=== PATIENT | female | born 1995 | race Hispanic/Latino ===

== ENCOUNTER 2017-12-24 12:48 | Emergency (ER) | payer SELFPAY ==
[2017-12-24 15:08] LABS: Absolute Lymphocytes (CBC) 2.3 K/uL (0.7-4.9); Absolute Monocytes 0.7 K/uL (0.1-1.3); Eosinophils % 3.2 % (0-4.4); Lymphocytes % 31.2 % (15.3-44.8); MCH 30.7 pg (27.0-35.0); MCV 90.5 fL (80-100); MPV 9.3 fL (7.6-11.3); Monocytes % 9.6 % (3.3-12.3); RBC Red Blood Cell Count 4.53 M/uL (3.86-4.86)
[2017-12-24 15:19] LABS: BUN Blood Urea Nitrogen 9 mg/dL (6-20); Bicarbonate 26 mEq/L (21-31); Glucose Level 93 mg/dL (65-120); Potassium 3.5 mEq/L (3.6-5.0); Sodium Level 137 mEq/L (135-145)
[2017-12-24 15:39] LABS: Urine Blood 2+ (NEG); Urine Glucose NEGATIVE (NEG); Urine Protein TRACE (NEG); Urine Specific Gravity 1.025 (1.005-1.030)
--- NOTE | 2017-12-24 16:11 | ER ---
Nurse's Notes [facility] Name: Ashwini Reese Age: 22 yrs Sex: Female : 1995 Arrival Date: 12/24/2017 Time: 12:51 Bed 27 Private MD: Diagnosis: Abnormal uterine and vaginal bleeding, unspecified Presentation: 12/24 13:21 Presenting complaint: Patient states: "last night i started having a lot of vaginal tw2 bleeding, i had my period 2 weeks ago, cramping, and have some clots". Transition of care: patient was not received from another setting of care. Onset of symptoms was December 24, 2017. Care prior to arrival: None. 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 - Social history:: Smoking status: Patient/guardian denies using tobacco. - Family history:: not pertinent. - Hospitalizations: : No recent hospitalization is reported. Screenin:04 Abuse screen: Denies threats or abuse. Denies injuries from another. Nutritional aj1 screening: No deficits noted. Tuberculosis screening: No symptoms or risk factors identified. Assessment: 14:04 General: Appears in no apparent distress. comfortable, Behavior is calm, cooperative, aj1 appropriate for age. Pain: Denies pain. Neuro: Level of Consciousness is awake, alert, obeys commands, Oriented to person, place, time, situation. Cardiovascular: Patient's skin is warm and dry. Respiratory: Airway is patent Respiratory effort is even, unlabored, Respiratory pattern is regular, symmetrical. GI: No signs and/or symptoms were reported involving the gastrointestinal system. : Reports vaginal bleeding that is bright red, that began last night, states that she put a pad on at 2200 last night and when she woke up at 1000 this AM she had saturated the pad, she got up and took a shower and then came to the ER, but has not saturated a pad since this morning. EENT: No signs and/or symptoms were reported regarding the EENT system. Derm: No signs and/or symptoms reported regarding the dermatologic system. Skin is pink, warm \\T\\ dry. normal. Musculoskeletal: No signs and/or symptoms reported regarding the musculoskeletal system. Circulation, motion, and sensation intact. 15:19 Reassessment: Patient appears in no apparent distress at this time. Patient and/or aj1 family updated on plan of care and expected duration. Pain level reassessed. Patient is alert, oriented x 3, equal unlabored respirations, skin warm/dry/pink. 16:20 Reassessment: Patient appears in no apparent distress at this time. Patient and/or kb1 family updated on plan of care and expected duration. Pain level reassessed. Patient is alert, oriented x 3, equal unlabored respirations, skin warm/dry/pink. Vital Signs: 13:22 BP 121 / 68; Pulse 70; Resp 18; Temp 98.8; Pulse Ox 100% on R/A; Weight 83.91 kg (R); tw2 Height 4 ft. 11 in. (149.86 cm); Pain 6/10; 15:19 BP 117 / 76; Pulse 71; Resp 18; Pulse Ox 100% ; aj1 16:20 BP 120 / 87; Pulse 68; Resp 18; Pulse Ox 100% ; kb1 13:22 Body Mass Index 37.37 (83.91 kg, 149.86 cm) tw2 ED Course: 12:51 Patient arrived in ED. mr 13:21 Triage completed. tw2 13:23 Arm band placed on. tw2 14:04 Hollis Granados MD is Attending Physician. rn 14:04 Kat Le RN is Primary Nurse. aj1 14:04 Patient has correct armband on for positive identification. Bed in low position. Call aj1 light in reach. Side rails up X 1. 14:04 No provider procedures requiring assistance completed. aj1 16:20 IV discontinued, intact, bleeding controlled, No redness/swelling at site. Pressure kb1 dressing applied. Administered Medications: No medications were administered Outcome: 16:11 Discharge ordered by . rn 16:25 Discharged to home ambulatory. kb1 16:25 Condition: stable 16:25 Discharge instructions given to patient, Instructed on discharge instructions, follow up and referral plans. Demonstrated understanding of instructions, follow-up care. 16:33 Patient left the ED. kb1 Signatures: Kat Le RN RN aj1 Tere Sutton mr Hollis Granados MD MD rn Gwendolyn Ingram RN RN tw2 Sarah Underwood RN RN kb1
--- NOTE | 2017-12-24 16:11 | EDPHYS ---
Physician Documentation [facility] Name: Ashwini Reese Age: 22 yrs Sex: Female : 1995 Arrival Date: 12/24/2017 Time: 12:51 Bed 27 Private MD: ED Physician Hollis Granados HPI: 12/24 14:38 This 22 yrs old Female presents to ER via Ambulatory with complaints of rn Vaginal Pain. 14:38 This 22 yrs old Female presents to ER via Ambulatory with complaints of rn Vaginal bleeding. 14:38 The patient presents with vaginal bleeding that is moderate, reports using 2 pads porcelain waxer tampons per day. Onset: The symptoms/episode began/occurred last night. Modifying factors: The symptoms are alleviated by nothing, the symptoms are aggravated by nothing. The patient has not experienced similar symptoms in the past. The patient has not recently seen a physician. Reports vaginal bleeding since last night, has used 2 pads, is heavier than her normal bleeding, last normal period was 2 weeks ago and is very regular. . 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 - Social history:: Smoking status: Patient/guardian denies using tobacco. - Family history:: not pertinent. - Hospitalizations: : No recent hospitalization is reported. ROS: 14:38 Constitutional: Negative for fever, chills, and weight loss, Eyes: Negative for injury, rn pain, redness, and discharge, Cardiovascular: Negative for chest pain, palpitations, and edema, Respiratory: Negative for shortness of breath, cough, wheezing, and pleuritic chest pain, Abdomen/GI: Negative for abdominal pain, nausea, vomiting, diarrhea, and constipation, Back: Negative for injury and pain, : + vaginal bleeding MS/Extremity: Negative for injury and deformity, Skin: Negative for injury, rash, and discoloration, Neuro: Negative for headache, weakness, numbness, tingling, and seizure. Exam: 14:38 Constitutional: This is a well developed, well nourished patient who is awake, alert, rn and in no acute distress. Abdomen/GI: Soft, non-tender, with normal bowel sounds. No distension or tympany. No guarding or rebound. No evidence of tenderness throughout. MS/ Extremity: Pulses equal, no cyanosis. Neurovascular intact. Full, normal range of motion. Equal circumference. Vital Signs: 13:22 BP 121 / 68; Pulse 70; Resp 18; Temp 98.8; Pulse Ox 100% on R/A; Weight 83.91 kg (R); tw2 Height 4 ft. 11 in. (149.86 cm); Pain 6/10; 15:19 BP 117 / 76; Pulse 71; Resp 18; Pulse Ox 100% ; aj1 16:20 BP 120 / 87; Pulse 68; Resp 18; Pulse Ox 100% ; kb1 13:22 Body Mass Index 37.37 (83.91 kg, 149.86 cm) tw2 MDM: 14:04 Patient medically screened. rn 16:09 Differential diagnosis: menometrorrhagia, menorrhea, Data reviewed: vital signs, nurses rn notes, lab test result(s), and as a result, I will discharge patient. Counseling: I had a detailed discussion with the patient and/or guardian regarding: the historical points, exam findings, and any diagnostic results supporting the discharge/admit diagnosis, lab results, the need for outpatient follow up, to return to the emergency department if symptoms worsen or persist or if there are any questions or concerns that arise at home. 16:09 Special discussion: I discussed with the patient/guardian in detail that at this point rn there is no indication for admission to the hospital. It is understood, however, that if the symptoms persist or worsen the patient needs to return immediately for re-evaluation. Based on the history and exam findings, there is no indication for further emergent testing or inpatient evaluation. I discussed with the patient/guardian the need to see the OB Gyne specialist for further evaluation of the symptoms. 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 Return precautions given and understood. . 12/24 14:11 Order name: CBC with Diff; Complete Time: 15:41 rn 12/24 14:11 Order name: Basic Metabolic Panel; Complete Time: 15:41 rn 04/10 14:11 Order name: Urine Test (obtain specimen); Complete Time: 14:45 rn 12/24 14:11 Order name: IV Start; Complete Time: 14:45 rn 12/24 15:07 Order name: Urine Dipstick--Ancillary (enter results); Complete Time: 15:41 ag 12/24 15:07 Order name: Urine --Ancillary (enter results); Complete Time: 15:41 ag Administered Medications: No medications were administered Disposition: 12/24/17 16:11 Discharged to Home. Impression: Abnormal uterine and vaginal bleeding, unspecified. - Condition is Stable. - Discharge Instructions: Abnormal Uterine Bleeding. - Medication Reconciliation Form, Thank You Letter, Antibiotic Education, Prescription Opioid Use form. - Follow up: Private Physician; When: As needed; Reason: Recheck today's complaints, Re-evaluation by your physician. - Problem is new. - Symptoms have improved. Signatures: Dispatcher [employer] Hollis Shukla MD MD rn Wise, Tara, RN RN tw2 Sarah Underwood RN RN kb1
== END 2017-12-24 16:33 | disposition home or self-care (01) ==
LOC: ER 12:48
DX: N93.9 Abnormal uterine and vaginal bleeding, unspecified (principal)
CPT/HCPCS: 36415; 80048; 81003; 81025; 85025; 99281

== ENCOUNTER 2018-11-12 19:20 | Emergency (ER) | payer SELFPAY ==
[2018-11-12 20:43] LABS: Absolute Lymphocytes (CBC) 2.2 K/uL (0.7-4.9); Absolute Monocytes 0.6 K/uL (0.1-1.3); Basophils % 0.6 % (0-1.3); Eosinophils % 2.5 % (0-4.4); Hematocrit 40.2 % (36.0-45.0); Lymphocytes % 27.6 % (15.3-44.8); MPV 9.8 fL (7.6-11.3); Monocytes % 7.5 % (3.3-12.3); RBC Red Blood Cell Count 4.41 M/uL (3.86-4.86)
[2018-11-12 20:44] LABS: Protime INR 1.31
--- NOTE | 2018-11-12 20:56 | RAD REPORT ---
EXAM DESCRIPTION: Joseline Single View11/12/2018 8:44 pm CLINICAL HISTORY: Chest pain COMPARISON: none FINDINGS: The lungs appear clear of acute infiltrate. The heart is normal size IMPRESSION: No acute abnormalities displayed
[2018-11-12 20:58] LABS: ALT/SGPT 55 U/L (12-78); AST/SGOT 52 U/L (15-37); Alkaline Phosphatase 52 U/L (45-117); BUN Blood Urea Nitrogen 10 mg/dL (7-18); Bicarbonate 26 mmol/L (21-32); Bilirubin Direct 0.5 mg/dL (0-0.2); Bilirubin Total 1.7 mg/dL (0.2-1.0); Glucose Level 89 mg/dL (74-106); Magnesium 2.3 mg/dL (1.8-2.4); NT PRO-BNP 12 pg/mL (<125); Potassium 3.3 mmol/L (3.5-5.1); Protein, Total 8.2 g/dL (6.4-8.2); Sodium Level 141 mmol/L (136-145); Troponin (Emerg Dept Use Only) < 0.02 ng/mL (0.0-0.045)
--- NOTE | 2018-11-12 23:18 | ER ---
Nurse's Notes [facility] Name: Ashwini Reese Age: 22 yrs Sex: Female : 1995 Arrival Date: 11/12/2018 Time: 19:24 Bed 14 Private MD: Diagnosis: Chest pain, unspecified Presentation: 11/12 19:27 Presenting complaint: Patient states: I started having chest pain around 12PM today tl1 that is radiating to my back. About 2 hours after the chest pain started I began coughing. Transition of care: patient was not received from another setting of care. Onset of symptoms was November 12, 2018. Risk Assessment: Do you want to hurt yourself or someone else? Patient reports no desire to harm self or others. Initial Sepsis Screen: Does the patient meet any 2 criteria? HR > 90 bpm. Does the patient have a suspected source of infection? No. Patient's initial sepsis screen is negative. Care prior to arrival: None. 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 - Social history:: Smoking status: Patient/guardian denies using tobacco, never smoked. - Ebola Screening: : Patient negative for fever greater than or equal to 101.5 degrees Fahrenheit, and additional compatible Ebola Virus Disease symptoms Patient denies exposure to infectious person Patient denies travel to an Ebola-affected area in the 21 days before illness onset. Screenin:32 Abuse screen: Denies threats or abuse. Nutritional screening: No deficits noted. jb4 Tuberculosis screening: No symptoms or risk factors identified. Fall Risk None identified. Assessment: 19:32 General: Appears comfortable, well groomed, well nourished, Behavior is calm, jb4 cooperative, appropriate for age. Pain: Complains of pain in chest Pain radiates to thoracic area Pain currently is 7 out of 10 on a pain scale. Quality of pain is described as pressure, stabbing, Pain began Noon today. Is intermittent. Neuro: Level of Consciousness is awake, alert, obeys commands, Oriented to person, place, time, situation. Cardiovascular: Heart tones S1 S2 present Patient's skin is warm and dry. Rhythm is sinus rhythm. Respiratory: Reports shortness of breath with occurring chest pain Airway is patent Respiratory effort is even, unlabored, Respiratory pattern is regular, symmetrical, Breath sounds are clear bilaterally. GI: No signs and/or symptoms were reported involving the gastrointestinal system. : No signs and/or symptoms were reported regarding the genitourinary system. EENT: No signs and/or symptoms were reported regarding the EENT system. Derm: Skin is intact, Skin is pink, warm \T\ dry. Musculoskeletal: Circulation, motion, and sensation intact. 20:45 Reassessment: Patient and/or family updated on plan of care and expected duration. Pain jb4 level reassessed. Patient is alert, oriented x 3, equal unlabored respirations, skin warm/dry/pink. Cardiovascular: Patient's skin is warm and dry. Rhythm is sinus rhythm. 21:42 Reassessment: Patient and/or family updated on plan of care and expected duration. Pain jb4 level reassessed. Patient is alert, oriented x 3, equal unlabored respirations, skin warm/dry/pink. Cardiovascular: Patient's skin is warm and dry. Rhythm is sinus rhythm. 22:58 Reassessment: Patient and/or family updated on plan of care and expected duration. Pain jb4 level reassessed. Patient is alert, oriented x 3, equal unlabored respirations, skin warm/dry/pink. Patient states feeling better. Cardiovascular: Rhythm is sinus rhythm Chest pain is denied. Respiratory:. Vital Signs: 19:28 BP 126 / 77; Pulse 104; Resp 19; Temp 97.9; Pulse Ox 100% ; Weight 83.91 kg; Height 4 tl1 ft. 11 in. (149.86 cm); Pain 7/10; 20:30 BP 106 / 78; Pulse 89; Resp 20; Pulse Ox 99% on R/A; jb4 21:37 BP 117 / 75; Pulse 78; Resp 16; Pulse Ox 100% on R/A; jb4 22:58 BP 110 / 82; Pulse 84; Resp 19; Pulse Ox 100% on R/A; jb4 19:28 Body Mass Index 37.37 (83.91 kg, 149.86 cm) tl1 ED Course: 19:24 Patient arrived in ED. tl2 19:28 Triage completed. tl1 19:29 Antwon Craft, RN is Primary Nurse. jb4 19:29 Arm band placed on right wrist. EKG completed in triage. Results shown to MD. tl1 19:30 Patient maintains SpO2 saturation greater than 95% on room air. jb4 19:32 Patient has correct armband on for positive identification. Placed in gown. Bed in low jb4 position. Call light in reach. Side rails up X 1. environmental monitoring specialist on. Pulse ox on. NIBP on. 19:39 Initial lab(s) drawn, by nh, sent to lab. Inserted saline lock: 20 gauge in right jb4 antecubital area, using aseptic technique. Blood collected. 19:44 EKG done, by test tech. reviewed by Bernardino Caputo MD. oe 20:00 Bernardino Caputo MD is Attending Physician. tw4 20:44 XRAY Chest (1 view) In Process Unspecified. EDMS 20:49 Notified ED physician of a critical lab result(s). d dimer 871. fc 20:53 Radiology exam delayed due to lab results not completed at this time. (BUN/Creatinine). vm2 21:[address] via wheelchair. vm2 21:17 CT completed. Patient tolerated procedure well. Patient moved back from CT. vm2 21:37 CT Chest For PE Angio In Process Unspecified. EDMS 23:34 No provider procedures requiring assistance completed. IV discontinued, intact, jb4 bleeding controlled. Administered Medications: 20:27 Not Given (MD cancelled): Albuterol 2.5 mg Inhalation once fc Outcome: 23:17 Discharge ordered by MD. tw4 23:34 Discharged to home ambulatory. jb4 23:34 Condition: stable 23:34 Discharge instructions given to patient, Instructed on discharge instructions, follow up and referral plans. medication usage, Demonstrated understanding of instructions, follow-up care, medications, Prescriptions given X 1. 23:35 Patient left the ED. jb4 Signatures: Dispatcher [employer] EDID Sindy Acevedo RN RN Radha Diane RN RN tl1 Cookie Jimenez RN RN tl2 Antwon Craft, RN RN jb4 CarrChava gr Victoria 2 Bernardino Caputo MD [place] tw4
--- NOTE | 2018-11-12 23:18 | EDPHYS ---
Physician Documentation [facility] Name: Ashwini Reese Age: 22 yrs Sex: Female : 1995 Arrival Date: 11/12/2018 Time: 19:24 Bed 14 Private MD: ED Physician Bernardino Caputo HPI: 11/13 06:06 This 22 yrs old Female presents to ER via Ambulatory with complaints of Chest tw4 Pain. 06:06 The patient or guardian reports chest pain that is located primarily in the anterior tw4 chest wall. The pain does not radiate. Associated signs and symptoms: Pertinent positives: cough. The chest pain is described as dull. Duration: The patient or guardian reports a single episode. Modifying factors: The symptoms are alleviated by nothing. the symptoms are aggravated by nothing. Severity of pain: At its worst the pain was moderate in the emergency department the pain is unchanged. The patient has not experienced similar symptoms in the past. 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 - Social history:: Smoking status: Patient/guardian denies using tobacco, never smoked. - Ebola Screening: : Patient negative for fever greater than or equal to 101.5 degrees Fahrenheit, and additional compatible Ebola Virus Disease symptoms Patient denies exposure to infectious person Patient denies travel to an Ebola-affected area in the 21 days before illness onset. ROS: 11/13 06:06 Constitutional: Negative for fever, chills, and weight loss, Eyes: Negative for injury, tw4 pain, redness, and discharge, Respiratory: Negative for shortness of breath, cough, wheezing, and pleuritic chest pain, Abdomen/GI: Negative for abdominal pain, nausea, vomiting, diarrhea, and constipation, Back: Negative for injury and pain. MS/Extremity: Negative for injury and deformity, Skin: Negative for injury, rash, and discoloration, Neuro: Negative for headache, weakness, numbness, tingling, and seizure. Cardiovascular: Positive for chest pain, Negative for edema, orthopnea, palpitations, paroxysmal nocturnal dyspnea. Exam: 02:57 Constitutional: This is a well developed, well nourished patient who is awake, alert, tw4 and in no acute distress. Head/Face: Normocephalic, atraumatic. Chest/axilla: Normal chest wall appearance and motion. Nontender with no deformity. No lesions are appreciated. Cardiovascular: Regular rate and rhythm with a normal S1 and S2. No gallops, murmurs, or rubs. Normal PMI, no JVD. No pulse deficits. Respiratory: Lungs have equal breath sounds bilaterally, clear to auscultation and percussion. No rales, rhonchi or wheezes noted. No increased work of breathing, no retractions or nasal flaring. Abdomen/GI: Soft, non-tender, with normal bowel sounds. No distension or tympany. No guarding or rebound. No evidence of tenderness throughout. Back: No spinal tenderness. No costovertebral tenderness. Full range of motion. MS/ Extremity: Pulses equal, no cyanosis. Neurovascular intact. Full, normal range of motion. Neuro: Awake and alert, GCS 15, oriented to person, place, time, and situation. Cranial nerves II-XII grossly intact. Motor strength 5/5 in all extremities. Sensory grossly intact. Cerebellar exam normal. Normal gait. Vital Signs: 11/12 19:28 BP 126 / 77; Pulse 104; Resp 19; Temp 97.9; Pulse Ox 100% ; Weight 83.91 kg; Height 4 tl1 ft. 11 in. (149.86 cm); Pain 7/10; 20:30 BP 106 / 78; Pulse 89; Resp 20; Pulse Ox 99% on R/A; jb4 21:37 BP 117 / 75; Pulse 78; Resp 16; Pulse Ox 100% on R/A; jb4 22:58 BP 110 / 82; Pulse 84; Resp 19; Pulse Ox 100% on R/A; jb4 19:28 Body Mass Index 37.37 (83.91 kg, 149.86 cm) tl1 MDM: 20:00 Patient medically screened. tw4 11/13 06:06 Differential diagnosis: abnormal EKG, acute myocardial infarction, pulmonary embolus, tw4 stable angina, thoracic aortic disection. Data reviewed: vital signs, EMS record. 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 Test interpretation: by ED physician or midlevel provider: ECG, plain radiologic studies. Counseling: I had a detailed discussion with the patient and/or guardian regarding: the historical points, exam findings, and any diagnostic results supporting the discharge/admit diagnosis, lab results, radiology results. Special discussion: Based on the patient's history, exam, and Dx evaluation, there is no indication for emergent intervention or inpatient Tx. It is understood by the patient/guardian that if the Sx's persist or worsen they need to return immediately for re-evaluation. I discussed with the patient/guardian in detail that at this point there is no indication for admission to the hospital. It is understood, however, that if the symptoms persist or worsen the patient needs to return immediately for re-evaluation. 11/12 20:25 Order name: Basic Metabolic Panel 11/12 20:25 Order name: CBC with Diff 11/12 20:25 Order name: LFT's 11/12 20:25 Order name: Magnesium 11/12 20:25 Order name: NT PRO-BNP 11/12 20:25 Order name: PT-INR 11/12 20:25 Order name: Troponin (emerg Dept Use Only) 11/12 20:25 Order name: XRAY Chest (1 view) 11/12 20:25 Order name: EKG; Complete Time: 20:26 11/12 20:25 Order name: Cardiac monitoring; Complete Time: 20:26 11/12 20:25 Order name: D-Dimer 11/12 20:50 Order name: CT Chest For PE Angio 11/12 22:27 Order name: Troponin (emerg Dept Use Only) 11/12 20:25 Order name: EKG - Nurse/Tech; Complete Time: 20:32 11/12 20:25 Order name: IV Saline Lock; Complete Time: 20:32 11/12 20:25 Order name: Labs collected and sent; Complete Time: 20:32 11/12 20:25 Order name: O2 Per Protocol; Complete Time: 20:32 11/12 20:25 Order name: O2 Sat Monitoring; Complete Time: 20:32 EC:57 Rate is 89 beats/min. Rhythm is regular, Normal Sinus Rhythm. QRS [place] is Normal. [place] tw4 interval is normal. QRS interval is normal. QT interval is normal. No Q waves. T waves are Normal. No ST changes noted. Clinical impression: Normal ECG. Interpreted by me. Reviewed by me. Administered Medications: 11/12 20:27 Not Given ( cancelled): Albuterol 2.5 mg Inhalation once fc Disposition: 11/12/18 23:17 Discharged to Home. Impression: Chest pain, unspecified. - Condition is Stable. - Discharge Instructions: Nonspecific Chest Pain, Pain Without a Known Cause. - Prescriptions for Ibuprofen 600 mg Oral Tablet - take 1 tablet by ORAL route every 6 hours As needed take with food; 30 tablet. - Medication Reconciliation Form, Thank You Letter, Antibiotic Education, Prescription Opioid Use form. - Follow up: Private Physician; When: Upon discharge from the Emergency Department; Reason: If symptoms return, Recheck today's complaints, Continuance of care. - Problem is new. - Symptoms have improved. Signatures: Dispatcher [employer] EDND Sindy Acevedo RN RN Radha Diane RN RN tl1 Antwon Craft RN RN jb4 Bernardino Caputo MD MD tw4 Corrections: (The following items were deleted from the chart) 23:35 23:17 11/12/2018 23:17 Discharged to Home. Impression: Chest pain, unspecified. jb4 Condition is Stable. Forms are Medication Reconciliation Form, Thank You Letter, Antibiotic Education, Prescription Opioid Use. Follow up: Private Physician; When: Upon discharge from the Emergency Department; Reason: If symptoms return, Recheck today's complaints, Continuance of care. Problem is new. Symptoms have improved. tw4
--- NOTE | 2018-11-13 08:45 | EKG ---
Test Date: 2018-11-12 Test Time: 19:29:33 [place]oe[place]: YAMIL MEASUREMENT RESULTS: Intervals: Rate: 89 MT: 114 QRSD: 78 QT: 366 QTc: 445 [place]: P: 25 MT: 114 QRS: 18 T: 15 INTERPRETIVE STATEMENTS: Normal sinus rhythm Normal ECG No previous ECG available for comparison Electronically Signed On 11-13-18 08:43:52 MASTER TECHNICIAN by James Solares
--- NOTE | 2018-11-13 10:42 | RAD REPORT ---
EXAM DESCRIPTION: CT - Chest For Pe Angio - 11/12/2018 10:13 pm CLINICAL HISTORY: Shortness of breath. COMPARISON: None. TECHNIQUE: CT angiogram of the chest with IV contrast. 3-D MIP images were obtained in coronal and s agittal reconstructions. This exam was performed according to our departmental dose-optimization prog frandy, which includes automated exposure control, adjustment of the mA and/or kV according to patient s ize and/or use of iterative reconstruction technique. FINDINGS: No filling defects are seen in the pulmonary trunk or the left and right main pulmonary ar enio. There is limited evaluation of the segmental branches due to motion artifact. No aortic aneur ysm or dissection is seen. The thyroid gland is normal. No mediastinal or hilar adenopathy. The heart size is enlarged but witho ut pericardial effusion. No consolidation, pleural effusion, or pneumothorax is identified. The visua lized upper abdomen demonstrates no acute findings. No acute osseous findings are seen. IMPRESSION: No central pulmonary embolism. Electronically signed by: Max Martinez MD 11/12/2018 9:52 PM BAG [employer] Due to temporary technical issues with the PACS/Fluency reporting system, reports are being signed by the in house radiologist as a courtesy to ensure prompt reporting. The interpreting radiologist is f ully responsible for the content of the report.
== END 2018-11-12 23:35 | disposition home or self-care (01) ==
LOC: ER 19:20
DX: R07.9 Chest pain, unspecified (principal)
CPT/HCPCS: 36415; 71045; 71275; 80048; 80076; 83735; 83880; 84484; 85025; 85379; 85610; 93005; 99285; Q9967

== ENCOUNTER 2019-01-12 11:41 | Emergency (ER) | payer SELFPAY ==
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
== END 2019-01-12 16:06 | disposition home or self-care (01) ==
LOC: ER 11:41
DX: L76.82 Other postprocedural complications of skin and subcutaneous tissue (principal)